=== PATIENT | male | born 1965 | race Hispanic/Latino ===

== ENCOUNTER 2020-06-04 10:25 | Emergency (ER) | payer SELFPAY ==
--- NOTE | 2020-06-04 12:31 | Emergency Department Report ---
<MONICA LEVY - Last Filed: 06/04/20 14:18> ED General Adult HPI - General Chief complaint: Chest Pain Stated complaint: CHEST PAIN/COUGH/PAIN Time Seen by Provider: 06/04/20 12:18 - Related Data Home Medications Medication Instructions Recorded Confirmed Last Taken No Known Home Medications [No 06/04/20 06/04/20 Unknown Reported Home Medications] Allergies Allergy/AdvReac Type Severity Reaction Status Date / Time No Known Allergies Allergy Unverified 06/04/20 13:13 ED Past Medical Hx - Medications Home Medications: Home Medications Medication Instructions Recorded Confirmed Last Taken Type No Known Home Medications [No 06/04/20 06/04/20 Unknown History Reported Home Medications] ED Medical Decision Making - Lab Data Result diagrams: 06/04/20 12:44 06/04/20 12:44 - Medical Decision Making Patient seen and examined by me as well. Patient complains of shortness of b reath and abdominal growth. Patient has a history of cirrhosis and has had ascites in the past. Patient states the last paracentesis was greater than 9 years ago. On exam the patient has jaundice and his abdomen is distended and taut. ED Disposition Clinical Impression: Acute hyponatremia, Tobacco abuse Obesity Qualifiers: Body mass index: BMI 45.0-49.9 Cirrhosis of liver Qualifiers: Hepatic cirrhosis type: unspecified hepatic cirrhosis Ascites presence: with ascites Qualified Code(s): K74.60 - Unspecified cirrhosis of liver; R18.8 - Other ascites Disposition: OP ADMIT IP TO THIS HOSP Condition: Stable Referrals: PRIMARY CARE, [Primary Care Provider] - 3-5 Days <SANDRO RODRIGUEZ - Last Filed: 06/04/20 14:45> ED General Adult HPI - General Source: patient Mode of arrival: Ambulatory Limitations: No Limitations - History of Present Illness Initial comments: 54-year-old obese male presents to the emergency room for cough and shortness of breath body pains and positive COVID contact. Patient admits to chills and vomited this morning. Patient states is been taken [id number] NyQuil and Yvette-Monte[place] cold. Patient does admit to smoking cigarettes and states he has a drink maybe twice a month. 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 Onset/Timin -: days(s) Severity scale (0 -10): 2 Associated Symptoms: cough, fever/chills (Negative fever), shortness of breath ED Review of Systems ROS: Stated complaint: CHEST PAIN/COUGH/PAIN Other details as noted in HPI ED Past Medical Hx - Past Medical History Previous Medical History?: Yes Additional medical history: serosis of liver - Surgical History Past Surgical History?: No - Social History Smoking Status: Current Every Day Smoker Substance Use Type: Alcohol ED Physical Exam - General Limitations: No Limitations General appearance: alert, obese - Head Head exam: Present: atraumatic, normocephalic - Eye Eye exam: Present: normal appearance - ENT ENT exam: Present: mucous membranes moist - Neck Neck exam: Present: normal inspection, full ROM - Respiratory Respiratory exam: Present: normal lung sounds bilaterally, chest wall tenderness - Cardiovascular Cardiovascular Exam: Present: regular rate, normal rhythm. Absent: systolic murmur, diastolic murmur, rubs, gallop - GI/Abdominal GI/Abdominal exam: Present: soft, distended, diminished bowel sounds. Absent: tenderness, guarding, rebound - Extremities Exam Extremities exam: Present: pedal edema - Back Exam Back exam: Present: normal inspection, full ROM - Neurological Exam Neurological exam: Present: alert, oriented X3 - Psychiatric Psychiatric exam: Present: normal affect, normal mood - Skin Skin exam: Present: warm, dry, intact, normal color. Absent: rash ED Course Vital Signs 06/04/20 06/04/20 06/04/20 10:27 12:30 13:00 Temperature 97.8 F Pulse Rate 90 82 82 Respiratory 18 30 H 29 H Rate Blood Pressure 167/87 151/84 134/74 Blood Pressure 167/87 [Right] O2 Sat by Pulse 100 94 93 Oximetry 06/04/20 13:13 Temperature Pulse Rate Respiratory 20 Rate Blood Pressure Blood Pressure [Right] O2 Sat by Pulse 96 Oximetry ED Medical Decision Making - Lab Data Result diagrams: 06/04/20 12:44 06/04/20 12:44 Laboratory Last Values WBC 6.8 K/mm3 (4.5-11.0) 06/04/20 12:44 RBC 4.33 M/mm3 (3.65-5.03) 06/04/20 12:44 Hgb 14.2 gm/dl (11.8-15.2) 06/04/20 12:44 Hct 40.9 % (35.5-45.6) 06/04/20 12:44 MCV 95 fl (84-94) H 06/04/20 12:44 MCH 33 pg (28-32) H 06/04/20 12:44 MCHC 35 % (32-34) H 06/04/20 12:44 RDW 14.2 % (13.2-15.2) 06/04/20 12:44 Plt Count 143 K/mm3 (140-440) 06/04/20 12:44 Lymph % (Auto) 10.7 % (13.4-35.0) L 06/04/20 12:44 Bland % (Auto) 12.5 % (0.0-7.3) H 06/04/20 12:44 Eos % (Auto) 0.9 % (0.0-4.3) 06/04/20 12:44 Baso % (Auto) 0.4 % (0.0-1.8) 06/04/20 12:44 Lymph # 0.7 K/mm3 (1.2-5.4) L 06/04/20 12:44 Bland # 0.9 K/mm3 (0.0-0.8) H 06/04/20 12:44 Eos # 0.1 K/mm3 (0.0-0.4) 06/04/20 12:44 Baso # 0.0 K/mm3 (0.0-0.1) 06/04/20 12:44 Seg Neutrophils % 75.5 % (40.0-70.0) H 06/04/20 12:44 Seg Neutrophils # 5.1 K/mm3 (1.8-7.7) 06/04/20 12:44 PT 14.0 Sec. (12.2-14.9) 06/04/20 12:44 INR 1.06 (0.87-1.13) 06/04/20 12:44 APTT 31.1 Sec. (24.2-36.6) 06/04/20 12:44 Sodium 113 mmol/L (137-145) L* 06/04/20 12:44 Potassium 4.3 mmol/L (3.6-5.0) 06/04/20 12:44 Chloride 76.9 mmol/L (98-107) L 06/04/20 12:44 Carbon Dioxide 24 mmol/L (22-30) 06/04/20 12:44 Anion Gap 16 mmol/L 06/04/20 12:44 BUN 4 mg/dL (9-20) L 06/04/20 12:44 Creatinine 0.4 mg/dL (0.8-1.3) L 06/04/20 12:44 Estimated GFR > 60 ml/min 06/04/20 12:44 BUN/Creatinine Ratio 10 % 06/04/20 12:44 Glucose 128 mg/dL (75-100) H 06/04/20 12:44 Calcium 8.0 mg/dL (8.4-10.2) L 06/04/20 12:44 Phosphorus 2.20 mg/dL (2.5-4.5) L 06/04/20 12:44 Magnesium 1.90 mg/dL (1.7-2.3) 06/04/20 12:44 Total Bilirubin 1.20 mg/dL (0.1-1.2) 06/04/20 12:44 AST 21 units/L (5-40) 06/04/20 12:44 ALT 9 units/L (7-56) 06/04/20 12:44 Alkaline Phosphatase 133 units/L (35-129) H 06/04/20 12:44 Troponin T < 0.010 ng/mL (0.00-0.029) 06/04/20 12:44 Total Protein 7.0 g/dL (6.3-8.2) 06/04/20 12:44 Albumin 3.3 g/dL (3.9-5) L 06/04/20 12:44 Albumin/Globulin Ratio 0.9 % 06/04/20 12:44 Lipase 12 units/L (13-60) L 06/04/20 12:44 - Medical Decision Making 54-year-old obese male presents to the emergency room for cough and shortness of breath body pains and positive COVID contact. Patient admits to chills and vomited this morning. Patient states is been taken [id number] NyQuil and Yvette-[place] cold. Patient does admit to smoking cigarettes and states he has a drink maybe twice a month. 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 CBC, CMP, lipas e magnesium phosphorus chest x-ray PT PTT EKG. patient noted to have hyponatremic at 113. Patient be admitted to the hospitalist. Critical care attestation.: If time is entered above; I have spent that time in minutes in the direct care of this critically ill patient, excluding procedure time. ED Disposition Is pt being admited?: Yes Does the pt Need Aspirin: No
[2020-06-04 13:08] LABS: Basophils % (Auto) 0.4 % (0.0-1.8); Eosinophils # (Auto) 0.1 K/mm3 (0.0-0.4); Eosinophils % (Auto) 0.9 % (0.0-4.3); Hematocrit 40.9 % (35.5-45.6); Hemoglobin 14.2 gm/dl (11.8-15.2); Lymphocytes # (Auto) 0.7 K/mm3 (1.2-5.4); Lymphocytes % (Auto) 10.7 % (13.4-35.0); Mean Corpuscular HGB Conc 35 % (32-34); Mean Corpuscular Volume 95 fl (84-94); Monocytes # (Auto) 0.9 K/mm3 (0.0-0.8); Monocytes % (Auto) 12.5 % (0.0-7.3); Platelet Count 143 K/mm3 (140-440); Red Blood Count 4.33 M/mm3 (3.65-5.03); Red Cell Distribution Width 14.2 % (13.2-15.2)
[2020-06-04 13:18] LABS: INR 1.06 (0.87-1.13)
--- NOTE | 2020-06-04 13:18 | XRay Report ---
CHEST 1 VIEW INDICATION: Coughing. COMPARISON: None. FINDINGS: Support devices: None. Heart: Mildly enlarged Lungs/Pleura: There are low lung volumes. Accounting for this, no consolidation or effusion. IMPRESSION: 1. No acute findings. Signer Name: Kee Mendez MD Signed: 06/04/2020 1:13 PM Workstation Name: [id number]
[2020-06-04 13:19] LABS: Partial Thromboplastin Time 31.1 Sec. (24.2-36.6)
[2020-06-04 13:34] LABS: Alanine Aminotransferase 9 units/L (7-56); Albumin 3.3 g/dL (3.9-5); BUN/Creatinine Ratio 10; Blood Urea Nitrogen 4 mg/dL (9-20); Hemolysis Index 3
[2020-06-04] MEDS ORDERED: SODIUM CHLORIDE 0.9% 1000 ML 1,000 ML IV ONE (13:41)
[2020-06-04] MEDS ORDERED: SODIUM CHLORIDE 0.9% 1000 ML 1,000 ML ONE (13:52)
[2020-06-04 17:29] VITALS: BP 136/79
== END 2020-06-04 18:17 | disposition admitted as inpatient to this hospital (09) ==
LOC: ED 10:25
DX: E87.1 Hypo-osmolality and hyponatremia (principal); K74.60 Unspecified cirrhosis of liver; E66.9 Obesity, unspecified; F17.200 Nicotine dependence, unspecified, uncomplicated
CPT/HCPCS: 36415; 71045; 80053; 83690; 83735; 84100; 84484; 85025; 85610; 85730; 93005; 99283; J7030